=== PATIENT | female | born 1980 | race Caucasian/White ===

== ENCOUNTER 2022-10-28 01:56 | Emergency (ER) | payer MEDICAID ==
[~2022-10-28] VITALS: Ht 149.9 cm; Wt 116.9 kg
[2022-10-28 02:22] VITALS: O2SAT 98
[2022-10-28] MEDS ORDERED: IBUP-2029 MT (05:40)
[2022-10-28] MEDS ORDERED: PENI500T MT (05:40)
[2022-10-28] MEDS ORDERED: IBUPROFEN 600MG TABLET PO ONE (05:45)
[2022-10-28 06:25] VITALS: BP 128/89; PULSE 79; RESP 14; TEMP 98.6
== END 2022-10-28 06:31 | disposition home or self-care (01) ==
LOC: ER 01:56
DX: J02.9 Acute pharyngitis, unspecified (principal)
CPT/HCPCS: 87070; 87430; 99283